=== PATIENT | female | born 1995 | race Caucasian/White ===

== ENCOUNTER 2018-10-05 14:00 | Emergency (ER) | END 2018-10-05 17:25 | disposition home or self-care (01) ==

== ENCOUNTER 2019-03-23 13:34 | Outpatient (CLI) | payer MEDICAID, OTHER ==
[~2019-03-23] VITALS: Ht 160 cm; Wt 50.5 kg
[~2019-03-23 13:34] MED LIST: ACET500C5 PO; CEPH-443 PO; ELEC100080 PO
[2019-03-23 14:13] VITALS: Ht 160 cm; Wt 50.5 kg
[2019-03-23] MEDS ORDERED: PREN-93 PO (14:15)
[2019-03-23] MEDS ORDERED: FERR134T PO (14:16)
--- NOTE | 2019-03-23 15:34 | PN ---
Triage Information Date/Time Reason for visit: Constipation Weeks of Gestation 21+ /Para 1/0 Diabetes: none Hypertention: none Objective Heart Rate: 140's Contractions: None Results/Medications Results 24 hrs Laboratory Tests Test 03/23/19 14:25 Urine Color STRAW Urine Clarity CLEAR Urine pH 7.0 Urine Specific [place] 1.006 Urine Ketones TRACE A Urine Nitrite NEGATIVE Urine Bilirubin NEGATIVE Urine Urobilinogen NEGATIVE Urine Leukocyte Esterase NEGATIVE Urine Hemoglobin NEGATIVE Urine Glucose NEGATIVE Urine Total Protein NEGATIVE Disposition: Discharge Assessment/Plan Ultrasound reviewed Questions answered Instructions given She can follow up in the clinic tomorrow if her problem is not solved LEYLA LOPEZ M.D. Mar 23, 2019 15:34
--- NOTE | 2019-03-23 15:44 | TRIAGE ---
OB Triage Datetime Report Generated by CPN: 03/23/2019 15:44 Datetime: 03/23/2019 15:29 Stage of : OB Triage Maternal Assessment Level of Consciousness: Fully Conscious DTR's/Clonus: DTRs 1+ Headache: Denies RUQ Epigastric Pain: Denies Labor Evaluation Frequency: NONE Monitor Mode: External Resting Tone [place]: Relaxed Pain Assessment Pain Scale: 0 Pain Presence: None/Denies Pain Type: N/A Pain Goal: 3 Vaginal Exam Membrane Status: Intact Datetime: 03/23/2019 15:00 Stage of : OB Triage Maternal Assessment Level of Consciousness: Fully Conscious DTR's/Clonus: DTRs 1+ Headache: Denies RUQ Epigastric Pain: Denies Labor Evaluation Frequency: NONE Monitor Mode: External Resting Tone [place]: Relaxed Pain Assessment Pain Scale: 0 Pain Presence: None/Denies Pain Type: N/A Pain Goal: 3 Vaginal Exam Membrane Status: Intact Datetime: 03/23/2019 14:21 Maternal Assessment Level of Consciousness: Fully Conscious DTR's/Clonus: DTRs 1+ Headache: Denies Blurred Vision: No RUQ Epigastric Pain: Denies Facial Edema: None Labor Evaluation Frequency: NONE Monitor Mode: External Resting Tone [place]: Relaxed Heart Rate FHR Baseline Rate: 140 Monitor Mode: External US Variability: Moderate 6-25 bpm Accelerations: 15X15 Decelerations: None Category: Category I Comments: U/S OFF PER MD Pain Assessment Pain Scale: 0 Pain Presence: None/Denies Pain Type: N/A Pain Goal: 3 Vaginal Exam Membrane Status: Intact Datetime: 03/23/2019 14:07 Stage of : OB Triage Assessment Type: Triage Maternal Assessment Level of Consciousness: Fully Conscious DTR's/Clonus: DTRs 2+; No Clonus Headache: Denies Blurred Vision: No Respiratory Effort: Unlabored; Regular Rhythm; Equal Expansion Breath Sounds, Left: Clear and Equal Breath Sounds, Right: Clear and Equal Nausea/Vomiting: Denies RUQ Epigastric Pain: Denies Lower Extremities Edema: None Degree: None Upper Extremities Edema: None Degree: None Facial Edema: None Fall Risk Assessment History of Falling: (0) No Secondary Diagnosis: (0) No Ambulatory Aid: (0) Bedrest/Nurse Assist IV Therapy: (0) No Gait: (0) Normal/Bedrest/Immobile Mental Status: (0) Oriented to Own Ability Fall Score: 0 Fall Risk Score Definition: No Risk: No action required Datetime: 03/23/2019 13:45 Stage of : OB Triage Maternal Assessment Level of Consciousness: Fully Conscious DTR's/Clonus: DTRs 1+ Headache: Denies RUQ Epigastric Pain: Denies Labor Evaluation Frequency: NONE Monitor Mode: External Resting Tone [place]: Relaxed Heart Rate FHR Baseline Rate: 140 Monitor Mode: External US Variability: Moderate 6-25 bpm Accelerations: 15X15 Decelerations: None Category: Category I Pain Assessment Pain Scale: 0 Pain Presence: None/Denies Pain Type: N/A Pain Goal: 3 Vaginal Exam Membrane Status: Intact Datetime: 03/23/2019 13:30 Time of Arrival: 03/23/2019 13:30 EGA: 21.6 Arrived By: Ambulatory Arrived From: Home Chief Complaint: PT CAME IN C/O CONSTIPATION FOR 4 DAYS CAUSING HER ABD PAIN Movement: Present Contractions: Denies/Absent Rupture of Membranes: Denies Vaginal Bleeding: None Vaginal Discharge: Denies Recent Sexual Intercouse: Denies Abdominal Trauma: Not Applicable Additional Patient Complaints: NONE Time Provider Notified: 03/23/2019 14:07 Provider Notified: ZOHAIB Initial Plan: YOSI MAJANO
== END 2019-03-23 15:35 | disposition home or self-care (01) ==
LOC: OBT 13:34 → L-D 13:34 → OBT 15:35
PROVIDERS: ATTEND Obstetrics & Gynecology
DX: O26.892 Other specified pregnancy related conditions, second trimester (principal); Z3A.21 21 weeks gestation of pregnancy; K59.00 Constipation, unspecified
CPT/HCPCS: 76815; 76817; 81003; Z7500; G0463

== ENCOUNTER 2019-06-16 15:48 | Inpatient (IN) | payer OTHER ==
[~2019-06-16] VITALS: Ht 160 cm; Wt 54.6 kg
[~2019-06-16 15:48] MED LIST changes: -ACET500C5 PO; -CEPH-443 PO; -ELEC100080 PO; +FERR134T PO; +PREN-93 PO
[2019-06-16 16:57] VITALS: BP 120/74; PULSE 80; RESP 18
[2019-06-16 17:00] VITALS: Ht 160 cm; Wt 54.6 kg
--- NOTE | 2019-06-16 18:45 | HP ---
Date/Time of Note Date/Time of Note DATE: 06/16/19 TIME: 18:42 OB - History Hx of Present Free Text/Dictation 34+wks GA with severe IUGR and CTX : 1 Para: 0 Care: Limited Care Ultrasounds: Normal mid trimester US Obstetrical Complications: None Medical Complications: None Past Family/Social History * Past Medical, Surgical, Family and Obstetric Histories reviewed from chart. OB Admission Exam Vital Signs Vital Signs Vital Signs Date Temp Pulse Resp B/P (MAP) Pulse Ox O2 O2 Flow FiO2 Time Delivery Rate 06/16/19 98.3 80 18 120/74 Room Air 16:57 (89) Physical Exam Abdomen: WNL Cervical Dilatation: None Effacement: 0% Station: Ballot[place] Membranes: Intact Heart Rate: 140's Accelerations: Accelerations Present Decelerations: No Decelerations Varibility: Moderate Contractions on Admission: 6-10 Minutes Apart OB Assessment/Plan Reason for admission: observation Other Assessment: PMH Denies PSH Denies Allergy NKDA Plan: Expectant Management Other plan: 1.Steroids 2.Perinatology consult 3.Neonatology consult 4.IV hydration 5.Continuous monitoring LEYLA LOPEZ M.D. Jun 16, 2019 18:45
--- NOTE | 2019-06-16 19:37 | TRIAGE ---
OB Triage Datetime Report Generated by CPN: 06/16/2019 19:37 Datetime: 06/16/2019 18:47 Vaginal Exam Dilatation (cms): 0.0 Exam By: [email or web address] Vaginal Bleeding: None Cervix, Position: Posterior Datetime: 06/16/2019 18:00 Stage of : OB Triage Maternal Assessment Level of Consciousness: Keenly Alert, Responsive Labor Evaluation Frequency: 4UC/HR Monitor Mode: External Duration (sec)2399: 40-100 Quality: Mild Resting Tone [place]: Relaxed Heart Rate FHR Baseline Rate: 135 Monitor Mode: External US Variability: Moderate 6-25 bpm Accelerations: 15X15 Decelerations: None Category: Category I Pain Assessment Pain Scale: 0 Pain Goal: 3 Membrane Status: Intact Vaginal Bleeding: None Datetime: 06/16/2019 17:00 Stage of : OB Triage Maternal Assessment Level of Consciousness: Keenly Alert, Responsive Labor Evaluation Frequency: 5UC/HR Monitor Mode: External Duration (sec)2399: 70-90 Quality: Mild Resting Tone [place]: Relaxed Heart Rate FHR Baseline Rate: 135 Monitor Mode: External US Variability: Moderate 6-25 bpm Accelerations: 15X15 Decelerations: None Category: Category I Pain Assessment Pain Scale: 0 Pain Goal: 3 Membrane Status: Intact Vaginal Bleeding: None Datetime: 06/16/2019 16:54 Assessment Type: Triage Maternal Assessment Level of Consciousness: DTR's/Clonus: DTRs 2+; No Clonus Headache: Denies Blurred Vision: No Respiratory Effort: Unlabored; Regular Rhythm; Equal Expansion Breath Sounds, Left: Clear and Equal Breath Sounds, Right: Clear and Equal Nausea/Vomiting: Denies RUQ Epigastric Pain: Denies Lower Extremities Edema: None Degree: None Upper Extremities Edema: None Degree: None Facial Edema: None Fall Risk Assessment History of Falling: (0) No Secondary Diagnosis: (0) No Ambulatory Aid: (0) Bedrest/Nurse Assist IV Therapy: (0) No Gait: (0) Normal/Bedrest/Immobile Mental Status: (0) Oriented to Own Ability Fall Score: 0 Fall Risk Score Definition: No Risk: No action required Datetime: 06/16/2019 16:51 Monitor Mode: External Monitor Mode: External US Datetime: 06/16/2019 16:02 Time of Arrival: 06/16/2019 15:32 EGA: 34.0 Arrived By: Ambulatory Arrived From: Home Chief Complaint: pt. here for EVAL. OF IUGR Movement: Present Contractions: Denies/Absent Rupture of Membranes: Denies Vaginal Bleeding: None Vaginal Discharge: Denies Recent Sexual Intercouse: Denies Abdominal Trauma: Not Applicable Patient Complaints: None Time Provider Notified: 06/16/2019 17:19 Provider Notified: JOHN Initial Plan: EFW/BPP/U/S FOR UA Datetime: 06/16/2019 16:00 Monitor Mode: External Monitor Mode: External US Datetime: 03/23/2019 14:07 Fall Score: 0 Fall Risk Score Definition: No Risk: No action required Datetime: 03/23/2019 13:30 EGA: 21.6
[2019-06-16] MEDS: LACTATED RINGER'S 1,000 ML IV SCH ×2 (19:58→22:26)
[2019-06-16] MEDS ORDERED: ACETAMINOPHEN 325 MG TAB PO PRN (20:00)
[2019-06-16] MEDS: BETAMET NA PHOS/AC(6 MG/ML) 2 ML INJ SYG IM SCH (20:33)
--- NOTE | 2019-06-17 02:45 | QN ---
Documentation Comment 23 years old 1 with single intrauterine at 34 weeks with IUGR -FHR: No sign of metabolic acidosis- Category I -Continuous EFM, toco - She has received the first dose of betamethasone at 2034 on 06/16/2019, will receive second dose in 24 hours . Blood type B+, rubella immune BC, blood type and screen - Cont current management MARILU PENNY Jun 17, 2019 02:45
[2019-06-17] MEDS: LACTATED RINGER'S 1,000 ML IV SCH ×2 (06:02→15:37)
[2019-06-17] MEDS ORDERED: PRENATAL VITAMIN PO SCH (09:00)
[2019-06-17] MEDS ORDERED: FERROUS SULFATE (EC) 325 MG TAB PO SCH (09:00)
[2019-06-17] MEDS: BETAMET NA PHOS/AC(6 MG/ML) 2 ML INJ SYG IM SCH (20:43)
== END 2019-06-17 21:23 | disposition home or self-care (01) | DRG 833 ==
LOC: OBT 15:48 → L-D 15:51 → OBT 18:40 → L-D 18:40
PROVIDERS: ADMIT Obstetrics & Gynecology; ATTEND Obstetrics & Gynecology
DX: O36.5930 Maternal care for other known or suspected poor fetal growth, third trimester, not applicable or unspecified (principal); O62.9 Abnormality of forces of labor, unspecified; Z3A.34 34 weeks gestation of pregnancy
CPT/HCPCS: 76815; 76818; 76820; G0463; J0702; J7120

== ENCOUNTER 2019-07-08 10:23 | Outpatient (CLI) | payer OTHER ==
[~2019-07-08] VITALS: Ht 162.6 cm; Wt 54.5 kg
[2019-07-08 10:37] VITALS: BP 126/72; Ht 162.6 cm; Wt 54.5 kg
--- NOTE | 2019-07-08 12:10 | TRIAGE ---
OB Triage Datetime Report Generated by CPN: 07/08/2019 12:09 Datetime: 07/08/2019 11:17 Comments: US AT BEDSIDE Datetime: 07/08/2019 10:59 Stage of : OB Triage Pattern: Normal: <= 5 Contractions in 10 Minutes Heart Rate FHR Baseline Rate: 135 Monitor Mode: External US Variability: Moderate 6-25 bpm Accelerations: 15X15 Decelerations: None Category: Category I Pain Presence: None/Denies Pain Type: N/A Datetime: 07/08/2019 10:40 Time of Arrival: 07/08/2019 10:17 EGA: 37.1 Arrived By: Ambulatory Arrived From: Home Chief Complaint: NST, BPP IUGR Movement: Present Contractions: Denies/Absent Rupture of Membranes: Denies Vaginal Bleeding: None Vaginal Discharge: Denies Recent Sexual Intercouse: Denies Abdominal Trauma: Not Applicable Patient Complaints: Other Time Provider Notified: 07/08/2019 10:17 Provider Notified: DR. SAMANIEGO Initial Plan: NST BPP Datetime: 07/08/2019 10:35 Stage of : OB Triage Assessment Type: Triage Maternal Assessment Level of Consciousness: Keenly Alert, Responsive DTR's/Clonus: DTRs 2+; No Clonus Headache: Denies Blurred Vision: No Respiratory Effort: Unlabored; Regular Rhythm; Equal Expansion Breath Sounds, Left: Clear and Equal Breath Sounds, Right: Clear and Equal Nausea/Vomiting: Denies RUQ Epigastric Pain: Denies Lower Extremities Edema: None Degree: None Upper Extremities Edema: None Degree: None Facial Edema: None Fall Risk Assessment History of Falling: (0) No Secondary Diagnosis: (0) No Ambulatory Aid: (0) Bedrest/Nurse Assist IV Therapy: (0) No Gait: (0) Normal/Bedrest/Immobile Mental Status: (0) Oriented to Own Ability Fall Score: 0 Fall Risk Score Definition: No Risk: No action required Monitor Mode: External Monitor Mode: External US Pain Assessment Pain Scale: 0 Pain Presence: None/Denies Pain Type: N/A Datetime: 06/17/2019 21:30 Stage of : Antepartum Datetime: 06/17/2019 21:20 Stage of : Antepartum Pain Assessment Pain Scale: 0 Pain Goal: 0 Datetime: 06/17/2019 20:35 Stage of : Antepartum Maternal Assessment Level of Consciousness: Keenly Alert, Responsive DTR's/Clonus: DTRs 2+; No Clonus Headache: Denies Breath Sounds, Left: Clear and Equal Breath Sounds, Right: Clear and Equal Nausea/Vomiting: Denies RUQ Epigastric Pain: Denies Labor Evaluation Frequency: 0 Monitor Mode: External Pattern: Normal: <= 5 Contractions in 10 Minutes Resting Tone [place]: Relaxed Heart Rate FHR Baseline Rate: 135 Monitor Mode: External US Variability: Moderate 6-25 bpm Accelerations: 15X15 Decelerations: None Pain Presence: None/Denies Pain Type: N/A Datetime: 06/17/2019 19:49 Stage of : Antepartum Assessment Type: Ongoing Assessment Maternal Assessment Level of Consciousness: Keenly Alert, Responsive DTR's/Clonus: DTRs 2+; No Clonus Headache: Denies Blurred Vision: No Respiratory Effort: Unlabored; Regular Rhythm; Equal Expansion Breath Sounds, Left: Clear and Equal Breath Sounds, Right: Clear and Equal Nausea/Vomiting: Denies RUQ Epigastric Pain: Denies Lower Extremities Edema: None Degree: None Upper Extremities Edema: None Degree: None Facial Edema: None Fall Risk Assessment History of Falling: (0) No Secondary Diagnosis: (0) No Ambulatory Aid: (0) Bedrest/Nurse Assist IV Therapy: (0) No Gait: (0) Normal/Bedrest/Immobile Mental Status: (0) Oriented to Own Ability Fall Score: 0 Fall Risk Score Definition: No Risk: No action required Labor Evaluation Frequency: 0 Monitor Mode: External Pattern: Normal: <= 5 Contractions in 10 Minutes Resting Tone [place]: Relaxed Heart Rate FHR Baseline Rate: 130 Monitor Mode: External US Variability: Moderate 6-25 bpm Accelerations: 15X15 Decelerations: None Pain Presence: None/Denies Pain Type: N/A Datetime: 06/17/2019 18:12 Stage of : Antepartum Labor Evaluation Frequency: 0 Monitor Mode: External Pattern: Normal: <= 5 Contractions in 10 Minutes Resting Tone [place]: Relaxed Heart Rate FHR Baseline Rate: 125 Monitor Mode: External US Variability: Moderate 6-25 bpm Accelerations: 15X15 Decelerations: None Category: Category I Pain Presence: None/Denies Pain Type: N/A Datetime: 06/17/2019 17:30 Stage of : Antepartum Labor Evaluation Frequency: 0 Monitor Mode: External Pattern: Normal: <= 5 Contractions in 10 Minutes Resting Tone [place]: Relaxed Heart Rate FHR Baseline Rate: 135 Monitor Mode: External US Variability: Moderate 6-25 bpm Accelerations: 10X10 Category: Category II Pain Presence: None/Denies Pain Type: N/A Datetime: 06/17/2019 16:24 Stage of : Antepartum Labor Evaluation Frequency: 0 Monitor Mode: External Pattern: Normal: <= 5 Contractions in 10 Minutes Resting Tone [place]: Relaxed Heart Rate FHR Baseline Rate: 135 Monitor Mode: External US Variability: Moderate 6-25 bpm Accelerations: 15X15 Decelerations: None Category: Category I Pain Presence: None/Denies Pain Type: N/A Datetime: 06/17/2019 15:38 Stage of : Antepartum Labor Evaluation Frequency: 0 Monitor Mode: External Pattern: Normal: <= 5 Contractions in 10 Minutes Resting Tone [place]: Relaxed Heart Rate FHR Baseline Rate: 125 Monitor Mode: External US Variability: Moderate 6-25 bpm Accelerations: 15X15 Decelerations: None Category: Category I Pain Presence: None/Denies Datetime: 06/17/2019 15:33 Comments: patient respostioned herself in bed Datetime: 06/17/2019 14:17 Stage of : Antepartum Labor Evaluation Frequency: 0 Monitor Mode: External Pattern: Normal: <= 5 Contractions in 10 Minutes Resting Tone [place]: Relaxed Heart Rate FHR Baseline Rate: 125 Monitor Mode: External US Variability: Moderate 6-25 bpm Accelerations: 15X15 Decelerations: None Category: Category I Pain Presence: None/Denies Pain Type: N/A Datetime: 06/17/2019 13:23 Stage of : Antepartum Labor Evaluation Frequency: 0 Monitor Mode: External Pattern: Normal: <= 5 Contractions in 10 Minutes Resting Tone [place]: Relaxed Pain Presence: None/Denies Pain Type: N/A Datetime: 06/17/2019 12:31 Stage of : Antepartum Labor Evaluation Frequency: irreg Monitor Mode: External Duration (sec)2399: 50-60 Quality: Mild Pattern: Normal: <= 5 Contractions in 10 Minutes Resting Tone [place]: Relaxed Heart Rate FHR Baseline Rate: 125 Monitor Mode: External US Variability: Moderate 6-25 bpm Accelerations: 15X15 Decelerations: None Category: Category I Pain Presence: None/Denies Pain Type: N/A Datetime: 06/17/2019 11:03 Stage of : Antepartum Labor Evaluation Frequency: 0 Monitor Mode: External Pattern: Normal: <= 5 Contractions in 10 Minutes Resting Tone [place]: Non Relaxed Monitor Mode: External US Variability: Moderate 6-25 bpm Accelerations: 15X15 Decelerations: None Category: Category I Pain Presence: None/Denies Pain Type: N/A Datetime: 06/17/2019 10:02 Stage of : Antepartum Labor Evaluation Frequency: 0 Monitor Mode: External Pattern: Normal: <= 5 Contractions in 10 Minutes Resting Tone [place]: Relaxed Heart Rate FHR Baseline Rate: 125 Monitor Mode: External US Variability: Moderate 6-25 bpm Accelerations: 15X15 Decelerations: None Category: Category I Pain Presence: None/Denies Pain Type: N/A Datetime: 06/17/2019 08:52 Stage of : Antepartum Labor Evaluation Frequency: 0 Monitor Mode: External Pattern: Normal: <= 5 Contractions in 10 Minutes Resting Tone [place]: Relaxed Heart Rate FHR Baseline Rate: 135 Monitor Mode: External US Variability: Moderate 6-25 bpm Accelerations: 15X15 Decelerations: None Category: Category I Pain Presence: None/Denies Pain Type: N/A Datetime: 06/17/2019 07:34 Stage of : Antepartum Assessment Type: Ongoing Assessment Maternal Assessment Level of Consciousness: Keenly Alert, Responsive DTR's/Clonus: DTRs 2+; No Clonus Headache: Denies Blurred Vision: No Respiratory Effort: Unlabored; Regular Rhythm; Equal Expansion Breath Sounds, Left: Clear and Equal Breath Sounds, Right: Clear and Equal Nausea/Vomiting: Denies RUQ Epigastric Pain: Denies Lower Extremities Edema: None Degree: None Upper Extremities Edema: None Degree: None Facial Edema: None Temperature Route: Oral Fall Risk Assessment History of Falling: (0) No Secondary Diagnosis: (0) No Ambulatory Aid: (0) Bedrest/Nurse Assist IV Therapy: (0) No Gait: (0) Normal/Bedrest/Immobile Mental Status: (0) Oriented to Own Ability Fall Score: 0 Fall Risk Score Definition: No Risk: No action required Labor Evaluation Frequency: 0 Monitor Mode: External Heart Rate FHR Baseline Rate: 135 Monitor Mode: External US Variability: Moderate 6-25 bpm Accelerations: 15X15 Decelerations: None Category: Category I Pain Assessment Pain Scale: 0 Pain Presence: None/Denies Pain Goal: 0 Datetime: 06/17/2019 07:00 Labor Evaluation Frequency: irreg Monitor Mode: External Duration (sec)2399: 40-80 Quality: Mild Pattern: Normal: <= 5 Contractions in 10 Minutes Resting Tone [place]: Relaxed Heart Rate FHR Baseline Rate: 130 Monitor Mode: External US Variability: Moderate 6-25 bpm Accelerations: 10X10 Decelerations: None Category: Category I Datetime: 06/17/2019 06:00 Labor Evaluation Frequency: irreg Monitor Mode: External Duration (sec)2399: 40-80 Quality: Mild Pattern: Normal: <= 5 Contractions in 10 Minutes Resting Tone [place]: Relaxed Heart Rate FHR Baseline Rate: 130 Monitor Mode: External US Variability: Moderate 6-25 bpm Accelerations: 15X15 Decelerations: None Category: Category I Datetime: 06/17/2019 05:00 Labor Evaluation Frequency: irreg Monitor Mode: External Duration (sec)2399: 40-80 Quality: Mild Pattern: Normal: <= 5 Contractions in 10 Minutes Resting Tone [place]: Relaxed Heart Rate FHR Baseline Rate: 130 Monitor Mode: External US Variability: Moderate 6-25 bpm Accelerations: 15X15 Decelerations: None Category: Category I Datetime: 06/17/2019 04:00 Labor Evaluation Frequency: irreg Monitor Mode: External Duration (sec)2399: 40-80 Quality: Mild Pattern: Normal: <= 5 Contractions in 10 Minutes Resting Tone [place]: Relaxed Heart Rate FHR Baseline Rate: 125 Monitor Mode: External US Variability: Moderate 6-25 bpm Accelerations: 15X15 Decelerations: None Category: Category I Datetime: 06/17/2019 03:00 Labor Evaluation Frequency: irreg Monitor Mode: External Duration (sec)2399: 40-80 Quality: Mild Pattern: Normal: <= 5 Contractions in 10 Minutes Resting Tone [place]: Relaxed Heart Rate FHR Baseline Rate: 130 Monitor Mode: External US Variability: Moderate 6-25 bpm Accelerations: 15X15 Decelerations: None Category: Category I Datetime: 06/17/2019 02:00 Stage of : Antepartum Datetime: 06/17/2019 01:50 Labor Evaluation Frequency: irreg Monitor Mode: External Duration (sec)2399: 40-80 Quality: Mild Pattern: Normal: <= 5 Contractions in 10 Minutes Resting Tone [place]: Relaxed Heart Rate FHR Baseline Rate: 130 Monitor Mode: External US Variability: Moderate 6-25 bpm Accelerations: 15X15 Decelerations: None Category: Category I Datetime: 06/17/2019 01:00 Labor Evaluation Frequency: irreg Monitor Mode: External Duration (sec)2399: 40-90 Quality: Mild Pattern: Normal: <= 5 Contractions in 10 Minutes Resting Tone [place]: Relaxed Heart Rate FHR Baseline Rate: 135 Monitor Mode: External US Variability: Moderate 6-25 bpm Accelerations: 15X15 Decelerations: None Category: Category I Pain Assessment Pain Scale: 0 Pain Presence: None/Denies Pain Type: N/A Datetime: 06/17/2019 00:00 Labor Evaluation Frequency: IRREG Monitor Mode: External Duration (sec)2399: 60-90 Quality: Mild Pattern: Normal: <= 5 Contractions in 10 Minutes Resting Tone [place]: Relaxed Heart Rate FHR Baseline Rate: 140 Monitor Mode: External US Variability: Moderate 6-25 bpm Accelerations: 15X15 Decelerations: None Category: Category I Datetime: 06/16/2019 23:00 Labor Evaluation Frequency: 3-5 Monitor Mode: External Duration (sec)2399: 50-110 Quality: Mild Pattern: Normal: <= 5 Contractions in 10 Minutes Resting Tone [place]: Relaxed Heart Rate FHR Baseline Rate: 135 Monitor Mode: External US Variability: Moderate 6-25 bpm Accelerations: 15X15 Decelerations: None Category: Category I Datetime: 06/16/2019 22:40 Pain Assessment Pain Scale: 0 Pain Presence: None/Denies Pain Type: N/A Datetime: 06/16/2019 22:31 Labor Evaluation Frequency: x3 Monitor Mode: External Duration (sec)2399: 40-50 Quality: Mild Pattern: Normal: <= 5 Contractions in 10 Minutes Resting Tone [place]: Relaxed Heart Rate FHR Baseline Rate: 140 Monitor Mode: External US Variability: Moderate 6-25 bpm Accelerations: 15X15 Decelerations: None Category: Category I Datetime: 06/16/2019 22:00 Labor Evaluation Frequency: irreg Monitor Mode: External Duration (sec)2399: 40-80 Quality: Mild Pattern: Normal: <= 5 Contractions in 10 Minutes Resting Tone [place]: Relaxed Heart Rate FHR Baseline Rate: 135 Monitor Mode: External US Variability: Moderate 6-25 bpm Accelerations: 15X15 Decelerations: None Category: Category I Datetime: 06/16/2019 21:00 Labor Evaluation Frequency: IRREG Monitor Mode: External Duration (sec)2399: 50-80 Quality: Mild Pattern: Normal: <= 5 Contractions in 10 Minutes Resting Tone [place]: Relaxed Heart Rate FHR Baseline Rate: 135 Monitor Mode: External US Variability: Moderate 6-25 bpm Accelerations: 15X15 Decelerations: None Category: Category I Datetime: 06/16/2019 20:00 Labor Evaluation Frequency: IRREG Monitor Mode: External Duration (sec)2399: 50-80 Quality: Mild Pattern: Normal: <= 5 Contractions in 10 Minutes Resting Tone [place]: Relaxed Contraction Comments: PT DENIES FEELING UCS Heart Rate FHR Baseline Rate: 135 Monitor Mode: External US Variability: Moderate 6-25 bpm Accelerations: 15X15 Decelerations: None Category: Category I Pain Assessment Pain Scale: 0 Pain Presence: None/Denies Pain Type: N/A Datetime: 06/16/2019 16:54 Fall Score: 0 Fall Risk Score Definition: No Risk: No action required Datetime: 06/16/2019 16:02 EGA: 34.0 Datetime: 03/23/2019 14:07 Fall Score: 0 Fall Risk Score Definition: No Risk: No action required Datetime: 03/23/2019 13:30 EGA: 21.6
--- NOTE | 2019-07-08 12:51 | PN ---
Triage Information Date/Time Reason for visit: IUGR (Patient is here for NST and BPP) Weeks of Gestation 23-year-old 1 para 0 at 37 weeks and 1 day of gestation with estimated date of delivery July 28, 2019 She is here for NST and BPP for IUGR Patient reports positive movement, denies vaginal bleeding and leaking fluid, denies uterine contractions /Para 1 para 0 Diabetes: none Hypertention: none Objective Vital Signs Date Temp Pulse Resp B/P (MAP) Pulse Ox O2 O2 Flow FiO2 Time Delivery Rate 07/08/19 98.3 126/72 10:37 (90) Heart Rate: 140's Contractions: None Results/Medications Imaging Results PROCEDURE: US OB biophysical profile. CLINICAL INDICATION: decreased movements, IUGR TECHNIQUE: Multiple sonographic images of the pelvis were obtained. The images were reviewed on a PACS workstation. COMPARISON: 06/16/2019 FINDINGS: There is a single live intrauterine gestation. Cardiac activity is present with 130 beats per minute. There is a vertex presentation. The placenta is anterior. There is no evidence of placental abruption. HOLLIE = 8.6 cm. Biophysical profile: movement 2/2 tone 2/2. breathing 2/2 HOLLIE 2/2 Total 07/02 RPTAT: AA . IMPRESSION: Normal biophysical profile. .Roni Diaz MD, Date Time Electronically viewed and signed by .Roni Diaz MD, on 07/08/2019 11:42 .S/ CC: LEYLA LANDRY MD [phone] Disposition: Discharge Assessment/Plan Patient scheduled for induction at 38 weeks of gestation on July 14, 2019 kick count instructions were given Labor precautions were given Patient instructed to return in 48 hours for repeat BPP and NST Patient instructed to follow-up with [facility] in 1 to 2 days FLOR SORIA MD Jul 08, 2019 12:51
== END 2019-07-08 12:12 | disposition home or self-care (01) ==
LOC: OBT 10:23 → L-D 10:25 → OBT 12:12
PROVIDERS: ATTEND Obstetrics & Gynecology
DX: O36.5930 Maternal care for other known or suspected poor fetal growth, third trimester, not applicable or unspecified (principal); Z3A.37 37 weeks gestation of pregnancy
CPT/HCPCS: 76818; G0463

== ENCOUNTER 2019-07-11 12:18 | Outpatient (CLI) | payer OTHER ==
[~2019-07-11] VITALS: Ht 162.6 cm; Wt 57.0 kg
[2019-07-11 12:28] VITALS: Ht 162.6 cm; Wt 57.0 kg
[2019-07-11 12:29] VITALS: BP 115/76; PULSE 65; RESP 18
--- NOTE | 2019-07-11 12:52 | PN ---
Triage Information Date/Time Reason for visit: IUGR Weeks of Gestation 23-year-old 1 para 0 at 37 weeks and 4 days of gestation with estimated date of delivery July 28, 2019 with known IUGR Patient is here for NST and BPP Patient received steroids for lung maturity on prior admission in May 2019 Patient reports positive movement, denies vaginal bleeding and leaking fluid, reports occasional uterine contractions /Para 1 para 0 Diabetes: none Hypertention: none Objective Vital Signs Date Temp Pulse Resp B/P (MAP) Pulse Ox O2 O2 Flow FiO2 Time Delivery Rate 07/11/19 97.7 65 18 115/76 Room Air 12:29 (89) Heart Rate: 140's Heart Rate Comments heart rate tracing category 1 Contractions: >10 Minutes Apart Results/Medications Imaging Results PROCEDURE: US OB. , CLINICAL INDICATION: Size and dates , IUGR TECHNIQUE: Multiple sonographic images of the pelvis and gravid uterus were obtained. The images were reviewed on a PACS workstation. COMPARISON: 07/08/19 FINDINGS: Gestation: Single live intrauterine gestation. Cardiac activity: 144 beats per minute. Presentation: Vertex. Placenta: Location: Anterior. Appearance: No previa or abruption. Measurements: BPD = 8.3 cm, 33 weeks and 2 days HC = 30.8 cm, 34 weeks and 3 days AC = 31.5 cm, 35 weeks and 3 days FL = 6.8 cm, 35 weeks and 0 days Gestational Age: AUA estimated gestational age: 34 weeks 4 days LMP estimated gestational age: 37 weeks 4 days AUA estimated date of delivery: 08/18/19 The EFW = 2559 g, 7%ile based on LMP age. RPTAT: AA IMPRESSION: Single live intrauterine gestation of 34 weeks 4 days by ultrasound criteria. .Roni Diaz MD, Date Time Electronically viewed and signed by .Roni Diaz MD, on 07/11/2019 13:19 .S/ CC: LEYLA LANDRY MD [id number] PROCEDURE: US OB biophysical profile. CLINICAL INDICATION: decreased movements, TECHNIQUE: Multiple sonographic images of the pelvis were obtained. The images were reviewed on a PACS workstation. COMPARISON: No prior studies are available for comparison. FINDINGS: There is a single live intrauterine gestation. Cardiac activity is present with 129 beats per minute. There is a vertex presentation. The placenta is anterior. There is no evidence of placental abruption. HOLLIE = 7.2 cm. MVP = 2.6 cm. Biophysical profile: movement 2/2 tone 2/2. breathing 2/2 HOLLIE 2/2 Total 07/02 RPTAT: AA . IMPRESSION: Normal biophysical profile. Mild oligohydramnios. .Roni Diaz MD, MD Date Time Electronically viewed and signed by .Roni Diaz MD, MD on 07/11/2019 13:18 .S/ CC: LEYLA LANDRY MD [id number] Disposition: Discharge Assessment/Plan kick count instructions were given Labor precautions were given Patient is scheduled for induction on Saturday, July 14, 2019 FLOR SORIA MD Jul 11, 2019 12:52
--- NOTE | 2019-07-11 14:09 | TRIAGE ---
OB Triage Datetime Report Generated by CPN: 07/11/2019 14:08 Datetime: 07/11/2019 12:44 Maternal Assessment Level of Consciousness: Keenly Alert, Responsive DTR's/Clonus: DTRs 2+ Headache: Denies Blurred Vision: No Nausea/Vomiting: Denies RUQ Epigastric Pain: Denies Facial Edema: None Labor Evaluation Frequency: irreg Monitor Mode: External Duration (sec)2399: 60 Quality: Mild Pattern: Normal: <= 5 Contractions in 10 Minutes Resting Tone [place]: Relaxed Heart Rate FHR Baseline Rate: 135 Monitor Mode: External US FHR Baseline Changes: No Baseline Change Variability: Moderate 6-25 bpm Accelerations: 15X15 Decelerations: None Category: Category I Pain Assessment Pain Scale: 0 Pain Presence: Intermittent Pain Type: Cramping Pain Location: Abdomen Pain Goal: 0 Vaginal Exam Membrane Status: Intact Datetime: 07/11/2019 12:35 Time of Arrival: 07/11/2019 12:05 EGA: 37.4 Arrived By: Ambulatory Arrived From: Home Chief Complaint: IUGR Movement: Present Rupture of Membranes: Denies Vaginal Bleeding: None Vaginal Discharge: Denies Recent Sexual Intercouse: Denies Abdominal Trauma: Not Applicable Patient Complaints: None Provider Notified: DR SORIA Initial Plan: EFM, OB US Datetime: 07/11/2019 12:34 Maternal Assessment Level of Consciousness: Keenly Alert, Responsive DTR's/Clonus: DTRs 2+; No Clonus Headache: Denies Blurred Vision: No Respiratory Effort: Unlabored; Regular Rhythm; Equal Expansion Breath Sounds, Left: Clear and Equal Breath Sounds, Right: Clear and Equal Nausea/Vomiting: Denies RUQ Epigastric Pain: Denies Facial Edema: None Temperature Route: Axillary Fall Risk Assessment History of Falling: (0) No Secondary Diagnosis: (0) No Ambulatory Aid: (0) Bedrest/Nurse Assist IV Therapy: (0) No Gait: (0) Normal/Bedrest/Immobile Mental Status: (0) Oriented to Own Ability Fall Score: 0 Fall Risk Score Definition: No Risk: No action required Datetime: 07/11/2019 12:21 Maternal Assessment Level of Consciousness: Keenly Alert, Responsive DTR's/Clonus: DTRs 2+ Headache: Denies Blurred Vision: No Nausea/Vomiting: Denies RUQ Epigastric Pain: Denies Facial Edema: None Labor Evaluation Frequency: IRREG Monitor Mode: External Duration (sec)2399: 80 Quality: Mild Pattern: Normal: <= 5 Contractions in 10 Minutes Resting Tone [place]: Relaxed Heart Rate FHR Baseline Rate: 130 Monitor Mode: External US FHR Baseline Changes: No Baseline Change Variability: Minimal - Undetectable to <=5 bpm Accelerations: 10X10 Decelerations: None Category: Category I Pain Assessment Pain Scale: 0 Pain Presence: None/Denies Pain Type: N/A Pain Goal: 0 Vaginal Exam Membrane Status: Intact Datetime: 07/08/2019 10:40 EGA: 37.1 Datetime: 07/08/2019 10:35 Fall Score: 0 Fall Risk Score Definition: No Risk: No action required Datetime: 06/17/2019 19:49 Fall Score: 0 Fall Risk Score Definition: No Risk: No action required Datetime: 06/17/2019 07:34 Fall Score: 0 Fall Risk Score Definition: No Risk: No action required Datetime: 06/16/2019 16:54 Fall Score: 0 Fall Risk Score Definition: No Risk: No action required Datetime: 06/16/2019 16:02 EGA: 34.0 Datetime: 03/23/2019 14:07 Fall Score: 0 Fall Risk Score Definition: No Risk: No action required Datetime: 03/23/2019 13:30 EGA: 21.6
[2019-07-11] MEDS ORDERED: LACTATED RINGER'S 1,000 ML IV SCH (14:19)
[2019-07-11] MEDS ORDERED: MAGNESIUM SULFATE 20 GM/500 ML 500 ML IV SCH (14:19)
[2019-07-11] MEDS ORDERED: MAGNESIUM SULFATE 4 GM/100 ML 100 ML IV ONE (14:30)
[2019-07-11] MEDS ORDERED: BETAMET NA PHOS/AC(6 MG/ML) 2 ML INJ SYG IM SCH (14:30)
== END 2019-07-11 14:19 | disposition home or self-care (01) ==
LOC: L-D 12:18 → OBT 12:18
PROVIDERS: ATTEND Obstetrics & Gynecology
DX: O36.5930 Maternal care for other known or suspected poor fetal growth, third trimester, not applicable or unspecified (principal); Z3A.37 37 weeks gestation of pregnancy
CPT/HCPCS: 76815; 76818; G0463